=== PATIENT | female | born 1985 | race African-American/Black ===

== ENCOUNTER 2022-08-19 05:25 | Emergency (ER) | payer BC ==
[~2022-08-19] VITALS: Ht 160 cm; Wt 95.3 kg
[2022-08-19 05:43] VITALS: BP_SYST 115
--- NOTE | 2022-08-19 06:05 | NUR ---
PT TRIAGED AND PLACED IN ROOM 2. ASSESSMENT COMPLETED. DR GARCIA AT BEDSIDE FOR EVALUATION.
--- NOTE | 2022-08-19 06:22 | NUR ---
IV ACCESS GAINED. BLOOD DRAWN AND URINE SAMPLE COLLECTED. WET MOUNT ALSO COLLECTED
[2022-08-19 06:31] LABS: BASOPHILS # (AUTO) 0.1 K/uL (0.0-0.2); BASOPHILS % (AUTO) 0.6 % (0.0-2.0); EOSINOPHILS # (AUTO) 0.1 K/uL (0.0-0.4); EOSINOPHILS % (AUTO) 0.6 % (0.0-4.0); HEMATOCRIT 36.4 % (36-48); LYMPHOCYTES % (AUTO) 24.9 % (20.5-51.5); MEAN CORPUSCULAR HEMOGLOBIN 27 pg (27-31); MEAN CORPUSCULAR HGB CONC 33 % (32-36); MEAN CORPUSCULAR VOLUME 84 fL (79.0-98.0); MONOCYTES # (AUTO) 1.1 K/uL (0.0-1.0); MONOCYTES % (AUTO) 6.8 % (1.7-9.3); NEUTROPHILS # (AUTO) 10.8 K/uL (1.8-7.7); NEUTROPHILS % (AUTO) 67.1 % (40.0-70.0); PLATELET COUNT (AUTO) 407 K/uL (130-430); RED BLOOD CELL COUNT(AUTO) 4.37 MIL/uL (4.2-6.2); RED CELL DISTRIBUTION WIDTH 13.5 % (9.0-15.0); WHITE BLOOD COUNT (AUTO) 16.2 K/uL (4.8-10.8)
[2022-08-19 06:34] LABS: BILIRUBIN,URINE NEGATIVE (NEGATIVE); BLOOD, URINE NEGATIVE (NEGATIVE); CLARITY/URINE CLEAR (CLEAR); COLOR,URINE YELLOW (YELLOW); GLUCOSE,URINE NEGATIVE (NEGATIVE); KETONES,URINE NEGATIVE (NEGATIVE); LEUKOCYTE ESTERASE ,URINE NEGATIVE (NEGATIVE); NITRITE, URINE NEGATIVE (NEGATIVE); PROTEIN URINE NEGATIVE (NEGATIVE); UROBILINOGEN,URINE 0.2 (0.2-1.0)
[2022-08-19 06:38] LABS: CALCIUM 8.7 mg/dL (8.4-11.0); CREATININE 0.82 mg/dL (0.55-1.30)
[2022-08-19 06:43] LABS: ALBUMIN 3.9 g/dL (3.4-4.8); TOTAL BILIRUBIN 0.4 mg/dL (0.0-1.0)
[2022-08-19] MEDS ORDERED: metroNIDAZOLE 500 mg/NS 100 ML IV ONE (07:00)
[2022-08-19 07:06] LABS: BARBITURATE, URINE NEGATIVE (NEG <=200); BENZODIAZEPINE, URINE NEGATIVE (NEG <=150); CANNABINOID, URINE NEGATIVE (NEG <=50); COCAINE, URINE NEGATIVE (NEG <=150); METHAMPHETAMINES SCREEN,URINE NEGATIVE (NEG <=500); OPIATE, URINE NEGATIVE (NEG <=100); PHENCYCLIDINE SCREEN,URINE NEGATIVE (NEG <=25); UR TRICYCLIC ANTIDEPRESSANTS NEGATIVE (NEG <=300); URINE AMPHETAMINE NEGATIVE (NEG <=500); URINE METHADONE NEGATIVE (NEG <=200); URINE OXYCODONE SCREEN NEGATIVE (NEG <=100); URINE PROPOXYPHENE SCREEN NEGATIVE (NEG <=300)
--- NOTE | 2022-08-19 07:23 | NUR ---
[place] of care received, pt A&Ox4, VSS, respirations even and unlabored, cap refill <3, will cont to monitor.
--- NOTE | 2022-08-19 07:25 | NUR ---
Per Report pt c/o lower abdominal pain, denies bleeding, afebrile, VSS.
[2022-08-19] MEDS ORDERED: MORPHINE 4 MG INJ. 4 MG/ML VIAL IVP ONE (07:45)
[2022-08-19] MEDS ORDERED: ONDANSETRON HCL 4 MG/2 ML VIAL IVP ONE (08:00)
[2022-08-19] MEDS ORDERED: METR-154 PO (08:17)
[2022-08-19] MEDS ORDERED: LEVO750T64 PO (08:17)
[2022-08-19 08:23] VITALS: BP_SYST 104
--- NOTE | 2022-08-19 08:33 | NUR ---
Patient given written and verbal discharge instructions and verbalizes understanding. ER MD discussed with patient the results and treatment provided. Patient in stable condition. ID arm band removed. IV catheter removed intact and dressing applied, no active bleeding. Rx sent to pharmacy. Patient educated on pain management and to follow up with PMD. Pain Scale 5/10. Opportunity for questions provided and answered. Medication side effect fact sheet provided.
== END 2022-08-19 08:33 | disposition home or self-care (01) ==
LOC: SED 05:25
DX: K57.92 Diverticulitis of intestine, part unspecified, without perforation or abscess without bleeding (principal); N76.0 Acute vaginitis; R10.32 Left lower quadrant pain; Z79.899 Other long term (current) drug therapy
CPT/HCPCS: 99285; 74176; 96365; 96375; 96367; 80307; 80053; 85025; 87040; 87210; 36415; 76376; 81025; 83605; 81003; J1956; J3490; J2405; J2270

== ENCOUNTER 2023-02-13 15:54 | Emergency (ER) | payer BC ==
[~2023-02-13] VITALS: Ht 160 cm; Wt 86.2 kg
[~2023-02-13 15:54] MED LIST: CLIN-142 PO; LEVO750T64 PO; METR-154 PO; NABU-140 PO
[2023-02-13 16:00] VITALS: BP_SYST 122; PULSE 85; RESP 18; TEMP 97.8; O2SAT 98
[2023-02-13 16:52] LABS: INFLUENZA TYPE A Negative (NEGATIVE); INFLUENZA TYPE B NEGATIVE (NEGATIVE)
[2023-02-13 16:53] LABS: COVID19 ANTIGEN SOFIA FIA NEGATIVE (NEGATIVE)
[2023-02-13] MEDS ORDERED: AMOX-520 PO (18:01)
[2023-02-13] MEDS ORDERED: ALBMDI INH (18:01)
== END 2023-02-13 18:09 | disposition home or self-care (01) ==
LOC: SED 15:54
DX: J40 Bronchitis, not specified as acute or chronic (principal); Z79.899 Other long term (current) drug therapy; Z20.822 Contact with and (suspected) exposure to COVID-19
CPT/HCPCS: 36415; 71045; 99284